=== PATIENT | female | born 1945 | race Caucasian/White ===

== ENCOUNTER → 2019-11-04 | Outpatient (CLI) | payer OTHER | LOC: SJCVC 14:56 → SJCVCIMAG 14:56 | DX: I45.10 Unspecified right bundle-branch block (principal); R09.89 Other specified symptoms and signs involving the circulatory and respiratory systems; E78.00 Pure hypercholesterolemia, unspecified; E11.9 Type 2 diabetes mellitus without complications; R53.83 Other fatigue; M19.90 Unspecified osteoarthritis, unspecified site; M85.80 Other specified disorders of bone density and structure, unspecified site; Z82.49 Family history of ischemic heart disease and other diseases of the circulatory system; Z79.84 Long term (current) use of oral hypoglycemic drugs; Z79.899 Other long term (current) drug therapy; Z88.8 Allergy status to other drugs, medicaments and biological substances ==

== ENCOUNTER → 2019-12-02 | Outpatient (CLI) | payer OTHER | LOC: SJCVCIMAG 08:09 | DX: I36.1 Nonrheumatic tricuspid (valve) insufficiency (principal); E11.9 Type 2 diabetes mellitus without complications; E78.5 Hyperlipidemia, unspecified; R53.83 Other fatigue; Z82.49 Family history of ischemic heart disease and other diseases of the circulatory system ==

== ENCOUNTER → 2020-08-22 | Outpatient (CLI) | payer OTHER | LOC: SJCVC 13:16 | PROVIDERS: ATTEND Internal Medicine Cardiovascular Disease | DX: R93.1 Abnormal findings on diagnostic imaging of heart and coronary circulation (principal); E78.00 Pure hypercholesterolemia, unspecified; R73.03 Prediabetes; Z79.899 Other long term (current) drug therapy; Z82.49 Family history of ischemic heart disease and other diseases of the circulatory system ==

== ENCOUNTER → 2021-07-01 | Outpatient (CLI) | payer OTHER | LOC: SJCVCIMAG 06-28 07:57 | PROVIDERS: ATTEND Internal Medicine Cardiovascular Disease | DX: I07.1 Rheumatic tricuspid insufficiency (principal); E78.5 Hyperlipidemia, unspecified; Z82.49 Family history of ischemic heart disease and other diseases of the circulatory system ==